=== PATIENT | female | born 1980 | race Caucasian/White ===

== ENCOUNTER 2020-11-03 06:22 | Emergency (ER) | payer MEDICAID, SELFPAY ==
[2020-11-03 06:24] VITALS: BP 135/82; PULSE 122; RESP 17; TEMP 36.8; O2SAT 98; BMI 34.5
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
[2020-11-03 07:11] LABS: Coronavirus 19, PCR Not Detected (NotDetected); Influenza A, PCR Not Detected (NotDetected); Influenza B, PCR Not Detected (NotDetected)
[2020-11-03 07:35] LABS: Microscopic, Urine URINE MICROSCOPIC (MICROSCOPIC)
[2020-11-03 07:57] LABS: Appearance,Urine CLEAR (Clear); Bilirubin,Urine Negative (Negative); Blood, Urine TRACE-I (Negative); Color,Urine YELLOW (Yellow); Glucose,Urine (UA) Negative (Negative); Ketones,Urine Negative (Negative); Leukocyte Esterase,Urine Negative (Negative); Nitrate,Urine Negative (Negative); Protein,Urine Negative (Negative); Specific Gravity, Urine <= 1.005 (1.005-1.030); Urobilinogen,Urine 0.2 EU/dl (0.2)
[2020-11-03 08:05] LABS: RBC,Urine Occasional #/hpf (0-3)
[2020-11-03 08:30] VITALS: BP 127/83; PULSE 79; RESP 18; TEMP 36.8; O2SAT 97
[2020-11-03 09:18] LABS: Barbiturates Screen,Urine Negative ng/ml (<200); Benzodiazepines Screen,Urine Negative ng/ml (<200)
[2020-11-03 09:19] LABS: Amphetamine/Metha Screen,Urine Positive ng/ml (<1000)
[2020-11-03 09:20] LABS: Cannabinoid Screen,Urine Negative ng/ml (<50); Cocaine Screen,Urine Negative ng/ml (<300)
[2020-11-03 09:21] LABS: Methadone Screen,Urine Negative ng/ml (<300)
[2020-11-03 09:22] LABS: Phencyclidine Screen,Urine Negative ng/ml (<25)
[2020-11-03 09:23] LABS: Opiate Screen,Urine Negative ng/ml (<300)
== END 2020-11-03 08:31 | disposition home or self-care (01) ==
PROVIDERS: Emergency Provider Emergency Medicine; PCP Nurse Practitioner Family
DX: J20.9 Acute bronchitis, unspecified (principal); S20.211A Contusion of right front wall of thorax, initial encounter; W50.0XXA Accidental hit or strike by another person, initial encounter; Y92.019 Unspecified place in single-family (private) house as the place of occurrence of the external cause; F17.210 Nicotine dependence, cigarettes, uncomplicated
CPT/HCPCS: 71101; 80305; 81001; 99283; C9803; U0003; U0005

== ENCOUNTER 2020-12-23 16:07 | Emergency (ER) | payer MEDICAID, SELFPAY ==
[2020-12-23 16:10] VITALS: BP 146/117; PULSE 103; RESP 20; RESP 22; TEMP 36.8; O2SAT 96; BMI 26.6
--- NOTE | 2020-12-23 16:46 | HMH.EDUTC ---
[facility] [place] Clinical Impression: Nausea & vomiting Qualifiers: Vomiting type: unspecified Vomiting Intractability: unspecified Qualified Code(s): R11.2 - Nausea with vomiting, unspecified Sinusitis Qualifiers: Sinusitis location: unspecified location Chronicity: unspecified Qualified Code(s): J32.9 - Chronic sinusitis, unspecified Disposition: Home, Self-Care Condition on Discharge: Good Instructions: Sinusitis, DI for Sinusitis, DI for Nausea -- Adult Additional Instructions: *Monitor Temp, Over the counter Motrin or Tylenol as directed/as needed Tylenol every 4 hours and Motrin every 6 hours (as long as your family doctor has told you that you can take it) for fever or pain. and straight to ER if unable to lower temp less than 101.0 after medication given *Warm salt water gargles may help to soothe the throat *Throat Lozenges *Warm fluids like tea with honey may help to soothe the throat *Sleep elevated *Humidifier/Vaporizer Your throat swab was sent for culture. Those results are typically sent to your primary care. Be sure to follow up in 2-3 days with your family doctor/primary care physician if no improvement so they can review those result and treat if necessary. If you don?t have a primary care doctor, I recommend you get one but in the mean time, you will have to return to a walk in clinic Follow up IMMEDIATELY for new or worsening symptoms or no Noticeable improvement over the next 48-72 hours. 911 for difficulty breathing or swallowing You were tested for today for COVID19 your test result should be back in the next 24-48 hours, you may for your results on the [facility] [employer] portal if you have issues logging on you may call for your results You was given a handout with instructions for Self Quarantine and Self isolation for while you wait on test results and what to do if they are positive If you are positive the Health Dept will be contacting you also Make sure to take your Vitamins Vit. C Vit D and Zinc if you can take them Prescriptions: Azithromycin [Z-Andrew 250mg Tab] 250 mg PO DIRECTED #6 tab Transmission Status: Pending to [facility] Ondansetron [Zofran 4mg ODT] 4 mg PO TIDP PRN #10 tab PRN Reason: Nausea Transmission Status: Pending to [facility] Referrals: Ingrid Joseph [Primary Care Provider] - As needed Forms: Work/School Release Time of Disposition: 17:58 Medical Decision Making - Stan Inquiry Pt receiving controlled substance: No Stan was queried for this patient: No Vital Signs: 12/23/20 16:10 Temperature 98.3 F Temperature Source Oral Pulse Rate [Right Brachial] 103 H Respiratory Rate 20 Blood Pressure [Right Arm] 146/117 H Blood Pressure Mean [Right Arm] 126 Blood Pressure Source [Right Arm] Automatic Cuff Blood Pressure Position [Right Arm] Sitting 02 Sat by Pulse Oximetry 96 Oxygen Delivery Method Room Air - Lab Data Lab results reviewed: Yes: I reviewed the patient's lab results. Lab Results 12/23/20 17:03: Strep Scn Rapid Clinic Negative Orders (Tests/Meds): ED MEDICATIONS Generic Name Dose Route Start Last Admin Trade Name Freq PRN Reason Stop Dose Admin Sodium Chloride 500 mls @ 500 mls/hr 12/23/20 17:18 12/23/20 17:19 Sod Chloride 0.9% 500ml Bag IV 12/23/20 18:17 500 mls/hr .Q1H SOBIA Administration Discontinued Medications Generic Name Dose Route Start Last Admin Trade Name Freq PRN Reason Stop Dose Admin Ketorolac Tromethamine 30 mg 12/23/20 16:49 12/23/20 17:18 Ketorolac 60mg/2ml Vial IV 12/23/20 16:50 30 mg ONCE ONE Administration Ondansetron HCl 4 mg 12/23/20 16:49 12/23/20 17:18 Ondansetron 4mg/2ml Vial IV 12/23/20 16:50 4 mg ONCE ONE Administration ORDERS Category Date Time Status Covid-19 Nasal PCR ([facility]) Routine Lab 12/23/20 17:00 Received Strep Screen Confirmation Stat Micro 12/23/20 17:03 Received Medical Decision Narrative: No vomiting since a
[2020-12-23 17:15] LABS: UTC Strep Screen (Rapid) Negative (Negative)
[2020-12-23 18:06] VITALS: BP 136/80; PULSE 103; RESP 20; TEMP 36.8; O2SAT 96
== END 2020-12-23 18:14 | disposition home or self-care (01) ==
PROVIDERS: Emergency Provider Nurse Practitioner; PCP Nurse Practitioner Family
DX: J32.9 Chronic sinusitis, unspecified (principal); U07.1 COVID-19; J45.909 Unspecified asthma, uncomplicated; I10 Essential (primary) hypertension; F17.210 Nicotine dependence, cigarettes, uncomplicated
CPT/HCPCS: 87880; 96365; 96375; 99202; C9803; G0463; J2405; U0003; U0005

== ENCOUNTER 2021-04-13 18:29 | Emergency (ER) | payer MEDICAID, SELFPAY ==
[2021-04-13 18:31] VITALS: BP 141/98; PULSE 87; RESP 19; TEMP 37.2; O2SAT 99; BMI 33.6
--- NOTE | 2021-04-13 19:09 | HMH.EDUTC ---
[facility] [place] Disposition Clinical Impression: Sinusitis Qualifiers: Sinusitis location: unspecified location Chronicity: unspecified Qualified Code(s): J32.9 - Chronic sinusitis, unspecified Disposition: Home, Self-Care Condition on Discharge: Good Instructions: Sinusitis, DI for Sinusitis, Azithromycin Additional Instructions: *Monitor Temp, Over the counter Motrin or Tylenol as directed/as needed Tylenol every 4 hours and Motrin every 6 hours (as long as your family doctor has told you that you can take it) for fever or pain. and straight to ER if unable to lower temp less than 101.0 after medication given *Warm salt water gargles may help to soothe the throat *Throat Lozenges *Warm fluids like tea with honey may help to soothe the throat *Sleep elevated *Humidifier/Vaporizer *Take medication as prescribed Follow up IMMEDIATELY for new or worsening symptoms or no Noticeable improvement over the next 48-72 hours. 911 for difficulty breathing or swallowing Prescriptions: Azithromycin [Z-Andrew 250mg Tab] 250 mg PO DIRECTED #6 tab Transmission Status: Received by [facility] Referrals: Ingrid Joseph [Primary Care Provider] - As needed Time of Disposition: 19:15 Medical Decision Making - Stan Inquiry Pt receiving controlled substance: No Stan was queried for this patient: No Vital Signs: 04/13/21 18:31 04/13/21 19:41 Temperature 98.9 F 98.9 F Temperature Source Oral Pulse Rate 87 Pulse Rate [Right Radial] 87 Respiratory Rate 19 19 Blood Pressure 141/98 H Blood Pressure [Right Arm] 141/98 H Blood Pressure Mean [Right Arm] 112 Blood Pressure Source [Right Arm] Automatic Cuff Blood Pressure Position [Right Arm] Sitting 02 Sat by Pulse Oximetry 99 Oxygen Delivery Method Room Air Orders (Tests/Meds): ED MEDICATIONS Discontinued Medications Generic Name Dose Route Start Last Admin Trade Name Freq PRN Reason Stop Dose Admin Ketorolac Tromethamine 30 mg 04/13/21 19:12 04/13/21 19:40 Ketorolac 60mg/2ml Vial IM 04/13/21 19:13 30 mg ONCE ONE Administration Medical Decision Narrative: Medication discussed with pharmacy due to [facility] HPI - General Stated complaint: cough,sob,stomach Time Seen by Provider: 04/13/21 19:09 Mode of Arrival: Ambulatory Source of Information: Patient Limitations: No Limitations Description of Symptoms (Recalled from Triage Doc. by RN): C/O ARCHER, sinus pressure and congestion x3 days HEENT Symptoms (Recalled from RN notes): Yes (ARCHER, sinus pressure) Resp Symptoms (Recalled from RN notes): No Skin Symptoms (Recalled from RN notes): No MS Symptoms (Recalled from RN notes): No Functional Status (Recalled from RN notes): n/a - History of Present Illness Provider Complaint: Patient states that she has been having headache, sinus pain and pressure and scratchy throat for the last 3 days States that she came in to see if she could get a shot to help with headache and get something for her sinuses - Related Data Home Medications Medication Instructions Recorded Confirmed lisinopriL [Lisinopril] 5 mg PO DAILY 12/23/20 12/23/20 Previous Rx's Medication Instructions Recorded Azithromycin [Z-Andrew 250mg Tab] 250 mg PO DIRECTED #6 tab 12/23/20 Ondansetron [Zofran 4mg ODT] 4 mg PO TIDP PRN #10 tab 12/23/20 Azithromycin [Z-Andrew 250mg Tab] 250 mg PO DIRECTED #6 tab 04/13/21 Allergies Allergy/AdvReac Type Severity Reaction Status Date / Time amoxicillin [AMOXICILLIN] Allergy Unknown Verified 10/09/18 18:08 codeine [CODEINE] Allergy Unknown NA-NAUSEA/V Verified 10/09/18 18:08 OMITING Penicillins Allergy Verified 12/23/20 16:45 - Worker's Comp Is this a Worker's Comp case?: No [facility] History - Hepatitis A Screen Drug use history?: No High risk sexual behaviors?: No History of sexually transmitted infection?: No Currently employed?: No Childcare worker?: No Do you have indoor plumbing?: Yes Do
[2021-04-13 19:41] VITALS: BP 141/98; PULSE 87; RESP 19; TEMP 37.2; O2SAT 99
== END 2021-04-13 19:45 | disposition home or self-care (01) ==
PROVIDERS: Emergency Provider Nurse Practitioner; PCP Nurse Practitioner Family
DX: J32.9 Chronic sinusitis, unspecified (principal); I10 Essential (primary) hypertension; F17.210 Nicotine dependence, cigarettes, uncomplicated
CPT/HCPCS: 96372; 99202; G0463

== ENCOUNTER 2022-09-16 10:45 | Observation (INO) | payer MEDICAID, SELFPAY ==
[2022-09-16] VITALS (16 sets, daily range): BP systolic 91–182; BP diastolic 52–141; PULSE 72–140; RESP 18–22; TEMP 36.4–37.1; O2SAT 96–100; BMI 35.4; BMI 34.9
--- NOTE | 2022-09-16 10:54 | PC.NURSE ---
went in with Dr. Heller to perform occult.
--- NOTE | 2022-09-16 10:56 | CT_ITS ---
PROCEDURE INFORMATION: Exam: CT Abdomen And Pelvis With Contrast Exam date and time: 09/16/2022 11:35 AM Age: 41 years old Clinical indication: Abdominal pain; Epigastric; Additional info: Epigastric pain tearing hematemesis poss perf TECHNIQUE: Imaging protocol: Computed tomography of the abdomen and pelvis with contrast. Radiation optimization: All CT scans at this facility use at least one of these dose optimization techniques: automated exposure control; mA and/or kV adjustment per patient size (includes targeted exams where dose is matched to clinical indication); or iterative reconstruction. Contrast material: ISOVUE; Contrast volume: 75 ml; Contrast route: IV; REPORTING DATA: Count of CT and Cardiac NM exams in prior 12 months: This patient has received 0 known CTs and 0 known cardiac nuclear medicine studies in the 12 months prior to the current study. COMPARISON: CR XR RIBS RT MIN 3V W CXR1V 11/03/2020 7:21 AM FINDINGS: Liver: Hepatic steatosis Gallbladder and bile ducts: Normal. No calcified stones. No ductal dilation. Pancreas: Normal. No ductal dilation. Spleen: Normal. No splenomegaly. Adrenal glands: Normal. No mass. Kidneys and ureters: Normal. No hydronephrosis. Stomach and bowel: Colonic diverticulosis. No evidence of diverticulitis. Appendix: No evidence of appendicitis. Intraperitoneal space: Unremarkable. No free air. No significant fluid collection. Vasculature: Scattered regions of atherosclerotic vascular calcification within the abdominal aorta and common iliac arteries. Lymph nodes: Unremarkable. No enlarged lymph nodes. Urinary bladder: Unremarkable as visualized. Reproductive: Unremarkable as visualized. Bones/joints: Unremarkable. No acute fracture. Soft tissues: Unremarkable. IMPRESSION: No evidence of acute abnormality.
--- NOTE | 2022-09-16 10:56 | CT_ITS ---
PROCEDURE INFORMATION: Exam: CT Chest With Contrast; Diagnostic Exam date and time: 09/16/2022 11:35 AM Age: 41 years old Clinical indication: Sternal or substernal pain; Additional info: Epigastric pain tearing hematemesis poss perf TECHNIQUE: Imaging protocol: Diagnostic computed tomography of the chest with contrast. Radiation optimization: All CT scans at this facility use at least one of these dose optimization techniques: automated exposure control; mA and/or kV adjustment per patient size (includes targeted exams where dose is matched to clinical indication); or iterative reconstruction. Contrast material: ISOVUE; Contrast volume: 75 ml; Contrast route: IV; REPORTING DATA: Count of CT and Cardiac NM exams in prior 12 months: This patient has received 0 known CTs and 0 known cardiac nuclear medicine studies in the 12 months prior to the current study. COMPARISON: CR XR RIBS RT MIN 3V W CXR1V 11/03/2020 7:21 AM FINDINGS: Lungs: Unremarkable. No consolidation. No masses. Pleural spaces: Unremarkable. No pneumothorax. No pleural effusion. Heart: Unremarkable. No cardiomegaly. No pericardial effusion. Coronary arteries: No evidence of coronary artery calcification. Lymph nodes: Unremarkable. No enlarged lymph nodes. Vasculature: Unremarkable. No aortic aneurysm. Bones/joints: Unremarkable. No acute fracture. Soft tissues: Unremarkable. IMPRESSION: No evidence of acute intrathoracic abnormality.
--- NOTE | 2022-09-16 10:56 | HMH.EDGENADL ---
Discharge Plan Disposition Chief Complaint: Abdominal Pain Prescriptions Prescriptions: No Action azithromycin 250 MG tablet 250 mg PO DIRECTED Qty: 6 0RF Rx Instructions: Take two (2) tablets on day #1, then one (1) tablet day #2 thru #5 lisinopril 5 MG tablet 5 mg PO DAILY azithromycin 250 MG tablet 250 mg PO DIRECTED Qty: 6 0RF Rx Instructions: Take two (2) tablets on day #1, then one (1) tablet day #2 thru #5 ondansetron 4 MG tablet,disintegrating 4 mg PO TIDP PRN (Reason: Nausea) Qty: 10 0RF Clinical Impressions Clinical Impression: Acute upper GI bleed Instructions Patient Instructions: DI for Acute Abdominal Pain Discharge ED Provider: Missy Heller General Adult HPI General Chief complaint: Abdominal Pain Stated complaint: abd pain Time Seen by Provider: 09/16/22 10:47 History of Present Illness HPI narrative: 41-year-old female with a history of chronic musculoskeletal pain who takes daily naproxen for 6 months presenting today with nausea vomiting coffee-ground emesis yesterday and sudden worsening of her pain today with faiza hematemesis. She also states she had melena for the last 24 hours. Pain is located epigastric in nature and feels like it is tearing in nature. Additionally she has a history of hepatitis C but no history of any cirrhosis or liver fibrosis. No history of esophageal varices. Related Data Home Medications Medication Instructions Recorded Confirmed lisinopril 5 mg tablet 5 mg PO DAILY Hypertension 12/23/20 12/23/20 Previous Rx's Medication Instructions Recorded azithromycin 250 mg tablet 250 mg PO DIRECTED #6 tabs 12/23/20 ondansetron 4 mg disintegrating 4 mg PO TIDP PRN Nausea #10 tabs 12/23/20 tablet azithromycin 250 mg tablet 250 mg PO DIRECTED #6 tabs 04/13/21 Allergies Allergy/AdvReac Type Severity Reaction Status Date / Time amoxicillin [AMOXICILLIN] Allergy Unknown Verified 10/09/18 18:08 codeine [CODEINE] Allergy Unknown NA-NAUSEA/V Verified 10/09/18 18:08 OMITING Penicillins Allergy Verified 12/23/20 16:45 [facility] Disclaimer: The information contained in this section may have been updated after the patient was seen, as this information can be updated by other users. Medical History (Updated 09/16/22 @ 10:58 by Missy Heller MD) Diarrhea Fever Nausea & vomiting Social History Smoking Status: Current every day smoker tobacco type: cigarettes packs per day: 1 alcohol intake: never substance use type: denies use current occupational status: employed Travel in the last 8 weeks: None household members: family housing: house ROS Obtained: Yes All systems reviewed & no additional complaints except as documented Physical Exam General General appearance: other (Patient screaming in pain) Respiratory Respiratory exam: Present normal lung sounds bilaterally Cardiovascular Cardiovascular exam: Present regular rate; Absent tachycardia Abdominal Exam Abdominal exam: Present other (Epigastric tenderness to palpation there is no rebound or guarding throughout the rest of her abdomen) Neurological Exam Neurological exam: Present alert and oriented X3 Medical Decision Making Stan Inquiry Pt receiving controlled substance: No Vital Signs: 09/16/22 10:45 09/16/22 11:03 09/16/22 11:47 Temperature 98.4 F Temperature Source Oral Pulse Rate 140 H 120 H Pulse Rate [Right] 122 H Respiratory Rate 22 18 Blood Pressure 99/73 L 104/70 L Blood Pressure [Right Arm] 182/141 H Blood Pressure Mean 78 81 Blood Pressure Mean [Right Arm] 154 Blood Pressure Source [Right Arm] Automatic Cuff Blood Pressure Position [Right Arm] Sitting 02 Sat by Pulse Oximetry 98 96 99 Oxygen Delivery Method Room Air Room Air 09/16/22 12:01 Temperature Temperature Source Pulse Rate 120 H Pulse Rate [Right] Respiratory Rate 18 Blood Pressure 120/83 Blood Pressure
[2022-09-16 11:03] LABS: Occult Blood,Stool Negative (Negative)
[2022-09-16 11:07] LABS: Basophils # 0.1 K/mm3 (0-0.2); Basophils % 0.6 % (0.1-2.0); Eosinophils # 0.1 K/mm3 (0.0-0.4); Eosinophils % 0.8 % (0.1-12.0); Hematocrit 48.5 % (37.0-47.0); Hemoglobin 15.8 g/dL (12.2-16.2); Lymphocytes # 2.7 K/mm3 (0.7-4.5); Lymphocytes % 21.4 % (10-50); Mean Corpuscular HGB Conc 32.7 g/dL (31.8-35.4); Mean Corpuscular Hemoglobin 28.7 pg (27.0-31.2); Mean Corpuscular Volume 87.9 fl (81-99); Mean Platelet Volume 8.4 fl (7.4-10.4); Monocytes # 0.7 K/mm3 (0.1-1.0); Monocytes % 5.7 % (1.7-9.3); Neutrophils % 71.5 % (37.0-80.0); Platelet Count 370 K/mm3 (142-424); Red Blood Count 5.52 M/mm3 (4.20-5.40); White Blood Count 12.6 K/mm3 (4.8-10.8)
--- NOTE | 2022-09-16 11:15 | PC.NURSE ---
lab called stating unable to run occult d/t not enough specimen on card.
[2022-09-16 11:18] LABS: Chloride 106 mmol/L (98-107); Potassium 3.9 mmoL/L (3.5-5.1); Sodium 139 mmol/L (136-145)
--- NOTE | 2022-09-16 11:19 | PC.NURSE ---
pt refused lab to draw type and screen
[2022-09-16 11:20] LABS: Alanine Aminotransferase 32 U/L (12-78); Aspartate Amino Transferase 38 U/L (14-36); Blood Urea Nitrogen 26 mg/dl (7-17); Creatinine Clearance Estimated 71 mL/min (50-200); Estimated Glomerular Filt Rate 38 ml/min (>60); GFR (African American) 46 ML/MIN (>60)
[2022-09-16 11:21] LABS: Albumin Level 4.8 g/dl (3.5-5.0); Albumin/Globulin Ratio 1.2 (1.1-1.8); Alkaline Phosphatase 139 U/L (38-126); Anion Gap 15.9 mEq/L (5-15); Calcium 10.3 mg/dl (8.4-10.2); Carbon Dioxide 21 mmol/L (22.0-30.0); Globulin 3.9 g/dL (1.3-3.2); Glucose 167 mg/dl (74-100); Lipase 91 U/L (23-300); Total Protein,Serum 8.7 g/dl (6.3-8.2)
[2022-09-16 11:24] LABS: Activated Partial Thrombo Time 29.3 seconds (22.8-30.6); INR 0.99 (0.9-1.1); Prothrombin Time 10.7 seconds (10.1-12.5)
--- NOTE | 2022-09-16 11:24 | PC.NURSE ---
attempted to contact to let him know that she is here, given cold wash cloth for comfort
--- NOTE | 2022-09-16 11:33 | PC.NURSE ---
Patient to CT
--- NOTE | 2022-09-16 11:45 | PC.NURSE ---
Rounded on patient; call light within reach. Nothing needed at this time.
--- NOTE | 2022-09-16 11:54 | PC.NURSE ---
Dr Willis paged
--- NOTE | 2022-09-16 11:55 | PC.NURSE ---
Dr Heller speaking with Dr Willis
--- NOTE | 2022-09-16 12:00 | PC.NURSE ---
Dr Heller speaking with Dr Bhandari
--- NOTE | 2022-09-16 12:00 | PC.NURSE ---
rounded on patient, patient on phone at this time, no needs at this time
--- NOTE | 2022-09-16 12:06 | PC.NURSE ---
Tanesha Spoke with postal supervisor for bed assignment
--- NOTE | 2022-09-16 12:23 | HMH.PHAINT1 ---
Pharmacy Intervention Comments: MEDICATION RECONCILIATION COMPLETED ON PATIENT USING EXTERNAL FILL HISTORY FROM PHARMACY. -CHERELLE PRITCHETT, RONALDOD
--- NOTE | 2022-09-16 12:26 | PC.NURSE ---
Rounded on patient; nothing needed at this time. Call richard within reach of patient
--- NOTE | 2022-09-16 12:27 | EXP.HP ---
History of Present Illness *Admission Date: 09/16/22 *Reason for visit:: Abdominal pain, hematemesis *History of present illness: Ms. Moeller is a 41-year-old female with history of hepatitis C and hypertension who presented to the ER with complaint of 1 to 2 days of hematemesis and 2 to 3 days of melenic stools. She states that she has been taking Aleve for the past 6 months for pain in her foot. Over the past week or so she has developed worsening abdominal discomfort and began having hematemesis and coffee-ground emesis over the past 1 to 2 days that was preceded by black stools. States she has been having discomfort in her upper abdomen. Denies any fever, chest pain, cough, shortness of breath. In the ER was found to be tachycardic with complaint of abdominal pain. Work-up initiated including imaging of abdomen, labs, stool occult. Occult was negative, hemoglobin 15. Imaging of her abdomen was benign with no acute abnormalities. Given clinical history however, surgery was consulted for possible EGD and medicine was consulted for admission for further management. Patient treated with 80 mg Protonix IV and made NPO. After arriving to the floor, patient states she is continue to have abdominal discomfort. Denies any further stools since admission or further emesis since admission. Just started antiviral treatment for hepatitis C a week ago. Had takes Prozac for mood and lisinopril for blood pressure. Currently sees GI in [place] for hepatitis C treatment. [facility] Disclaimer: The information contained in this section may have been updated after the patient was seen, as this information can be updated by other users. Medical History Diarrhea Fever Hypertension Nausea & vomiting Surgical History History of section Family History Family history of cancer Social History Smoking Status: Current every day smoker tobacco type: cigarettes packs per day: 1 alcohol intake: never substance use type: denies use current occupational status: employed Travel in the last 8 weeks: None household members: family housing: house Meds Home Medications and Allergies Home Medications Medication Instructions Recorded Confirmed Type fluoxetine 10 mg capsule 10 mg PO DAILY MOOD 09/16/22 09/16/22 History lisinopril 20 mg tablet 20 mg PO DAILY High Blood Pressure 09/16/22 09/16/22 History naproxen 500 mg tablet 500 mg PO BID Pain 09/16/22 09/16/22 History sofosbuvir 400 mg-velpatasvir 100 1 tab PO DAILY Hepatitis C 09/16/22 09/16/22 History mg tablet New Prescriptions to Start Prescriptions: Allergies Allergy/AdvReac Type Severity Reaction Status Date / Time amoxicillin [AMOXICILLIN] Allergy Unknown Verified 09/16/22 13:02 codeine [CODEINE] Allergy Unknown NA-NAUSEA/V Verified 09/16/22 13:02 OMITING Penicillins Allergy Verified 09/16/22 13:02 Exam Data for Last 24 hours Vital signs and Labs for Last 24 Hours: Temp Pulse Resp BP Pulse Ox O2 Del Method 98.4 F 120 H 18 120/83 98 Room Air 09/16/22 10:45 09/16/22 12:01 09/16/22 12:01 09/16/22 12:01 09/16/22 12:01 09/16/22 12:01 Laboratory Results - last 24 hr 09/16/22 10:47: WBC 12.6 H, RBC 5.52 H, Hgb 15.8, Hct 48.5 H, MCV 87.9, MCH 28.7, MCHC 32.7, RDW 13.0, Plt Count 370, MPV 8.4, Neut % (Auto) 71.5, Lymph % (Auto) 21.4, [place] % (Auto) 5.7, Eos % (Auto) 0.8, Baso % (Auto) 0.6, Neut # (Auto) 9.0 H, Lymph # (Auto) 2.7, [place] # (Auto) 0.7, Eos # (Auto) 0.1, Baso # (Auto) 0.1, PT 10.7, INR 0.99, APTT 29.3, Sodium 139, Potassium 3.9, Chloride 106, Carbon Dioxide 21 L, Anion Gap 15.9 H, BUN 26 H, Creatinine 1.50 H, Estimated Creat Clear 71, Estimated GFR 38 L, Est GFR ( Amer) 46 L, Glucose 167 H, Calcium 10.3 H, Total Bilirub
--- NOTE | 2022-09-16 13:49 | EXP.SURG.CON ---
History of Present Illness *Admission Date: 09/16/22 *Reason for visit:: GI bleed *History of present illness: Patient is a 41-year-old female from [place] with history of hepatitis C without cirrhosis or varices for which she is undergoing treatment by a brainer from [facility]. She has chronic musculoskeletal pain and has been taking Naprosyn daily for 6 months. She describes symptoms of epigastric and substernal pain with dysphagia for about 1 year. She has had some reported symptoms consistent with melena. She has had nausea for about a week and reportedly developed coffee-ground emesis yesterday. Today she had worsening of epigastric pain with symptoms described consistent with faiza hematemesis. She was evaluated in the emergency department. She was found to have some appreciable tachycardia on presentation. She underwent imaging to rule out Boerhaave's or perforation. Imaging revealed no evidence of any portal hypertension or varices and no perforation. Laboratory studies revealed hemoglobin of 15.8 with hematocrit of 48.5. She has a BUN of 26 and creatinine of 1.5. Coagulation profile is normal. The patient ate crackers with cheese and fruit prior to presentation to the emergency department and drank some tea after reporting to the emergency department. [facility] Disclaimer: The information contained in this section may have been updated after the patient was seen, as this information can be updated by other users. Medical History (Updated 09/16/22 @ 13:12 by Corrina Headley RN) Diarrhea Fever Hypertension Nausea & vomiting Surgical History History of section Family History (Updated 09/16/22 @ 13:13 by Corrina Headley RN) Family history of cancer Social History (Updated 09/16/22 @ 13:13 by Corrina Headley RN) Smoking Status: Current every day smoker tobacco type: cigarettes packs per day: 1 alcohol intake: never substance use type: denies use current occupational status: employed Travel in the last 8 weeks: None household members: family housing: house Meds Home Medications and Allergies Home Medications Medication Instructions Recorded Confirmed Type fluoxetine 10 mg capsule 10 mg PO DAILY MOOD 09/16/22 09/16/22 History lisinopril 20 mg tablet 20 mg PO DAILY High Blood Pressure 09/16/22 09/16/22 History naproxen 500 mg tablet 500 mg PO BID Pain 09/16/22 09/16/22 History sofosbuvir 400 mg-velpatasvir 100 1 tab PO DAILY Hepatitis C 09/16/22 09/16/22 History mg tablet New Prescriptions to Start Prescriptions: Allergies Allergy/AdvReac Type Severity Reaction Status Date / Time amoxicillin [AMOXICILLIN] Allergy Unknown Verified 09/16/22 13:02 codeine [CODEINE] Allergy Unknown NA-NAUSEA/V Verified 09/16/22 13:02 OMITING Penicillins Allergy Verified 09/16/22 13:02 Exam (Inpt) Vital signs and Labs for Last 24 Hours: Temp Pulse Resp BP Pulse Ox O2 Del Method 98.4 F 113 H 18 110/82 98 Room Air 09/16/22 13:01 09/16/22 13:01 09/16/22 13:01 09/16/22 13:01 09/16/22 13:01 09/16/22 13:01 Laboratory Results - last 24 hr 09/16/22 10:47: WBC 12.6 H, RBC 5.52 H, Hgb 15.8, Hct 48.5 H, MCV 87.9, MCH 28.7, MCHC 32.7, RDW 13.0, Plt Count 370, MPV 8.4, Neut % (Auto) 71.5, Lymph % (Auto) 21.4, [place] % (Auto) 5.7, Eos % (Auto) 0.8, Baso % (Auto) 0.6, Neut # (Auto) 9.0 H, Lymph # (Auto) 2.7, [place] # (Auto) 0.7, Eos # (Auto) 0.1, Baso # (Auto) 0.1, PT 10.7, INR 0.99, APTT 29.3, Sodium 139, Potassium 3.9, Chloride 106, Carbon Dioxide 21 L, Anion Gap 15.9 H, BUN 26 H, Creatinine 1.50 H, Estimated Creat Clear 71, Estimated GFR 38 L, Est GFR ( Amer) 46 L, Glucose 167 H, Calcium 10.3 H, Total Bilirubin 1.0, AST 38 H, ALT 32, Alkaline Phosphatase 139 H, Total Protein 8.7 H, Albumin 4.8, Globulin 3.9 H, Albumin/Globulin Ratio 1.2, Lipase 91 09/16/22 10:52: Stool Occult Blood Negative
[2022-09-16 14:45] LABS: HCG Qualitative, Serum Negative (Negative)
--- NOTE | 2022-09-16 15:14 | HMH.SCOPE ---
Procedure: Date: 09/16/22 Patient Date of :: 1980 Procedure Performed:: Esophagogastroduodenoscopy Indications:: Patient is a 41-year-old female from [place] with history of hepatitis C without cirrhosis or varices for which she is undergoing treatment by a assembly supervisor from [facility]. She has chronic musculoskeletal pain and has been taking Naprosyn daily for 6 months. She describes symptoms of epigastric and substernal pain with dysphagia for about 1 year. She has had some reported symptoms consistent with melena. She has had nausea for about a week and reportedly developed coffee-ground emesis yesterday. Today she had worsening of epigastric pain with symptoms described consistent with faiza hematemesis. She was evaluated in the emergency department. She was found to have some appreciable tachycardia on presentation. She underwent imaging to rule out Boerhaave's or perforation. Imaging revealed no evidence of any portal hypertension or varices and no perforation. Laboratory studies revealed hemoglobin of 15.8 with hematocrit of 48.5. She has a BUN of 26 and creatinine of 1.5. Coagulation profile is normal. The patient ate crackers with cheese and fruit prior to presentation to the emergency department and drank some tea after reporting to the emergency department. Performing Provider:: Truman Willis MD Referring Provider:: Tommy Bhandari MD Sedation:: MAC sedation Procedure:: Patient history was obtained and appropriate physical examination was performed. Patient's medications and allergies were reviewed. Informed consent was obtained after explaining the benefits, alternatives, and risks of the procedure including, but not limited to, bleeding, perforation, missed lesions, and adverse reaction to anesthesia medications. Patient was transported to endoscopy procedure room. Patient was connected to monitoring devices. Throughout the procedure the patient's blood pressure, pulse, and oxygen saturations were monitored continuously. Patient identification and planned procedure were verified by the staff. Patient was positioned in lateral decubitus position. Adequate intravenous sedation was achieved. Olympus endoscope was inserted via the oropharynx. Esophagus was cannulated. Overall esophagus revealed findings consistent with mild esophageal dysmotility. Gastroesophageal junction was encountered at approximately 38 cm. There were findings of mild Schatzki's ring. There were a couple of erosions, shallow, nonbleeding, at the gastroesophageal junction. No evidence of any varices. Stomach was cannulated and insufflated. Retroflexion revealed no evidence of any notable hiatal hernia. There was mild diffuse gastropathy. Pylorus was traversed. Duodenal bulb and duodenal sweep were carefully inspected without any evidence of ulcers. There was no evidence of any old blood throughout the upper GI tract. Stomach was desufflated and the endoscope was withdrawn. Findings:: Findings suggestive of mild to moderate esophageal dysmotility Gastroesophageal junction at 38 cm A couple of shallow nonbleeding erosions at the gastroesophageal junction Mild diffuse gastropathy Recommendations:: No active upper GI bleeding. Symptoms of dysphagia and occasional coffee-ground hematemesis likely secondary to currently nonbleeding erosions at the gastroesophageal junction. Would plan for expectant management with medical therapy. Repeat upper endoscopy may be warranted after some time of outpatient medical therapy. This could be undertaken by her regular assembly supervisor. Complications:: None immediate Estimated blood obtained (mL): 0 Colonoscopy Component Colonoscopy Component Was a colonoscopy performed during today's procedure?: No
--- NOTE | 2022-09-16 15:19 | EXP.ANES.CKL ---
[facility] Disclaimer: The information contained in this section may have been updated after the patient was seen, as this information can be updated by other users. Medical History (Updated 09/16/22 @ 13:12 by Corrina Headley RN) Diarrhea Fever Hypertension Nausea & vomiting Surgical History History of section Family History (Updated 09/16/22 @ 13:13 by Corrina Headley RN) Other Family history of cancer Social History (Updated 09/16/22 @ 13:13 by Corrina Headley RN) Smoking Status: Current every day smoker tobacco type: cigarettes packs per day: 1 alcohol intake: never substance use type: denies use current occupational status: employed Travel in the last 8 weeks: None household members: family housing: house [facility] Anesthesia Checklist Patient Identification Patient Identification: Arm Band Structural Data Admitted From: Home Planned Operative Procedure/s: EGD Consent for Planned Operative Procedure(s) Verified: Yes Verified Documents: Surgical Consent and History and Physical NPO Status Verified Time NPO: 09:45 Additional verifications Patient : No Anesthesia Reactions: No Airway Assessment C-Spine Mobility Assessed: Yes TMJ Mobility Assessed: Yes Dentition: Good Dentition Neurological Assessment Level of Consciousness: Awake and Alert Anesthesia Plan Anesthesia Risk discussed: Yes Anesthesia Plan: Verified ASA Class: II (E) Anesthesia Type: MAC
--- NOTE | 2022-09-16 20:07 | PC.NURSE ---
pt left floor at this time
--- NOTE | 2022-09-16 20:10 | PC.NURSE ---
IV REMOVED, CANNULA INTACT, PRESSURE DRSG APPLIED. INSTRUCTED TO FOLLOW UP WITH PRIMARY DOCTOR. PATIENT ASSISTED TO FRONT DOOR OF LOBBY AT 2004.
--- NOTE | 2022-09-17 07:42 | EXP.DC.SUM ---
General Admission date:: 09/16/22 Discharge date: 09/16/22 HPI HPI HPI: Ms. Moeller is a 41-year-old female with history of hepatitis C and hypertension who presented to the ER with complaint of 1 to 2 days of hematemesis and 2 to 3 days of melenic stools. She states that she has been taking Aleve for the past 6 months for pain in her foot. Over the past week or so she has developed worsening abdominal discomfort and began having hematemesis and coffee-ground emesis over the past 1 to 2 days that was preceded by black stools. States she has been having discomfort in her upper abdomen. Denies any fever, chest pain, cough, shortness of breath. In the ER was found to be tachycardic with complaint of abdominal pain. Work-up initiated including imaging of abdomen, labs, stool occult. Occult was negative, hemoglobin 15. Imaging of her abdomen was benign with no acute abnormalities. Given clinical history however, surgery was consulted for possible EGD and medicine was consulted for admission for further management. Patient treated with 80 mg Protonix IV and made NPO. After arriving to the floor, patient states she is continue to have abdominal discomfort. Denies any further stools since admission or further emesis since admission. Just started antiviral treatment for hepatitis C a week ago. Had takes Prozac for mood and lisinopril for blood pressure. Currently sees GI in [place] for hepatitis C treatment. Hospital Course Hospital Course Hospital Course: Patient was admitted for concern for GI bleed. Hemoglobin was appropriate, no anemia. Taken for EGD, found to have irritation/erosion at GE junction. No overt ulcers or bleeding however. Initiated on PPI therapy. Plan was to monitor hemoglobin overnight and gradually advance diet. Patient however did not want to stay and chose to leave AMA. Counseled on need to continue with management and observation, however patient preferred to leave without further care. Exam Data for Last 24 hours Vital signs and Labs for Last 24 Hours: Temp Pulse Resp BP Pulse Ox O2 Del Method O2 Flow Rate 98.6 F 91 H 18 124/68 98 Room Air 4 09/16/22 18:30 09/16/22 18:30 09/16/22 18:30 09/16/22 18:30 09/16/22 18:30 09/16/22 18:30 09/16/22 15:20 Laboratory Results - last 24 hr 09/16/22 10:47: WBC 12.6 H, RBC 5.52 H, Hgb 15.8, Hct 48.5 H, MCV 87.9, MCH 28.7, MCHC 32.7, RDW 13.0, Plt Count 370, MPV 8.4, Neut % (Auto) 71.5, Lymph % (Auto) 21.4, [place] % (Auto) 5.7, Eos % (Auto) 0.8, Baso % (Auto) 0.6, Neut # (Auto) 9.0 H, Lymph # (Auto) 2.7, [place] # (Auto) 0.7, Eos # (Auto) 0.1, Baso # (Auto) 0.1, PT 10.7, INR 0.99, APTT 29.3, Sodium 139, Potassium 3.9, Chloride 106, Carbon Dioxide 21 L, Anion Gap 15.9 H, BUN 26 H, Creatinine 1.50 H, Estimated Creat Clear 71, Estimated GFR 38 L, Est GFR ( Amer) 46 L, Glucose 167 H, Calcium 10.3 H, Total Bilirubin 1.0, AST 38 H, ALT 32, Alkaline Phosphatase 139 H, Total Protein 8.7 H, Albumin 4.8, Globulin 3.9 H, Albumin/Globulin Ratio 1.2, Lipase 91, Serum HCG, Qual Negative 09/16/22 10:52: Stool Occult Blood Negative I & O for Last 24 hours: Intake & Output 09/14/22 09/15/22 09/16/22 09/17/22 23:59 23:59 23:59 23:59 Intake Total 620 / 620 Output Total 0 / 0 Balance 620 / 620 Weight 89.358 kg Constitutional Constitutional: no acute distress Results Data Completed and Pending Labs on day of discharge: Labs from last 24 hours 09/16/22 09/16/22 10:52 10:47 WBC 12.6 H RBC 5.52 H Hgb 15.8 Hct 48.5 H MCV 87.9 MCH 28.7 MCHC 32.7 RDW 13.0 Plt Count 370 MPV 8.4 Neut % (Auto) 71.5 Lymph % (Auto) 21.4 [place] % (Auto) 5.7 Eos % (Auto) 0.8 Baso % (Auto) 0.6 Neut # (Auto) 9.0 H Lymph # (Auto) 2.7 [place] # (Auto) 0.7 Eos # (Auto) 0.1 Baso # (Auto) 0.1 PT 10.7 INR 0.99 APTT 29.3 Sodium 139 Potassium 3.9 Chloride 106 Carbon Dioxide 21 L Anion Gap 15.9 H BUN 26 H
== END 2022-09-16 20:05 | disposition left against medical advice (07) ==
LOC: ER 12:06 → 2ND 13:21
PROVIDERS: Surgery; Admitting Provider Internal Medicine Adolescent Medicine; Emergency Provider Student in an Organized Health Care Education/Training Program; Visit Provider Internal Medicine Adolescent Medicine
PROC: 0DJ08ZZ Inspection of Upper Intestinal Tract, Via Natural or Artificial Opening Endoscopic (ICD-10-PCS; CPT 43235; principal; 2022-09-16 15:00)
DX: K92.2 Gastrointestinal hemorrhage, unspecified (principal); R13.19 Other dysphagia; B19.20 Unspecified viral hepatitis C without hepatic coma; K22.2 Esophageal obstruction; R10.13 Epigastric pain; R07.2 Precordial pain; I10 Essential (primary) hypertension; N17.9 Acute kidney failure, unspecified; Z79.899 Other long term (current) drug therapy
CPT/HCPCS: 43235; 71260; 74177; 80053; 82272; 83690; 84703; 85025; 85610; 85730; 99291; G0328; G0378; J0131; J2405; Q9967

== ENCOUNTER 2022-10-07 14:30 | Emergency (ER) | payer MEDICAID, SELFPAY ==
--- NOTE | 2022-10-07 14:38 | PC.NURSE ---
pt was placed in room by registration who came out to let us know pt bed was moving and did not lock the bed, i went and secured bed for pt
[2022-10-07 14:45] VITALS: BP 170/121; PULSE 99; O2SAT 96
[2022-10-07 14:51] VITALS: BP 170/101; PULSE 107; RESP 20; TEMP 36.8; O2SAT 98; BMI 30.9
[2022-10-07 15:01] VITALS: BP 146/89; PULSE 91; O2SAT 98
--- NOTE | 2022-10-07 15:09 | CT_ITS ---
PROCEDURE INFORMATION: Exam: CT Chest With Contrast; Diagnostic Exam date and time: 10/07/2022 4:15 PM Age: 41 years old Clinical indication: Other: Blood and esphogus erosion; Additional info: Ugib, hematemesis, ge jx erosions TECHNIQUE: Imaging protocol: Diagnostic computed tomography of the chest with contrast. Radiation optimization: All CT scans at this facility use at least one of these dose optimization techniques: automated exposure control; mA and/or kV adjustment per patient size (includes targeted exams where dose is matched to clinical indication); or iterative reconstruction. Contrast material: ISOVUE; Contrast volume: 75 ml; Contrast route: IV; REPORTING DATA: Count of CT and Cardiac NM exams in prior 12 months: This patient has received 2 known CTs and 0 known cardiac nuclear medicine studies in the 12 months prior to the current study. COMPARISON: CT CHEST W CON 09/16/2022 11:35 AM FINDINGS: Lungs: No evidence of airspace opacity or interlobular septal thickening. Pleural spaces: No pneumothorax. No pleural effusion. Heart: No cardiomegaly or pericardial effusion. Coronary arteries: There is mild atherosclerotic calcification of the coronary arteries. Mediastinal space: Esophagus is unremarkable. No evidence of hiatal hernia. Lymph nodes: No evidence of mediastinal or hilar lymphadenopathy. Vasculature: Aorta is nonaneurysmal. Bones/joints: No acute osseous abnormality. Soft tissues: Unremarkable. IMPRESSION: 1. Esophagus is unremarkable. No evidence of hiatal hernia. 2. No evidence of pneumonia or interstitial lung disease
--- NOTE | 2022-10-07 15:27 | HMH.EDGENADL ---
Discharge Plan Disposition Patient Disposition: Home, Self-Care Condition: Good Prescriptions Prescriptions: New omeprazole 20 mg capsule,delayed release(DR/EC) 20 mg PO DAILY 28 Days Qty: 28 0RF sucralfate [Carafate] 100 mg/mL suspension 1 g PO BID 28 Days Qty: 560 0RF No Action lisinopril 20 mg tablet 20 mg PO DAILY fluoxetine 10 mg capsule 10 mg PO DAILY sofosbuvir-velpatasvir 400-100 mg tablet 1 tab PO DAILY naproxen 500 mg tablet 500 mg PO BID Referrals Follow up/Referrals: Truman Willis MD [Staff Physician] - See instructions Provider,MD Jd [Primary Care Provider] - See instructions Activity Restrictions/Add. Instructions Additional Instructions/Restrictions: At this time is felt you are safe to be discharged home. If new or worsening symptoms please do not hesitate to return the emergency department. Please take your medications as prescribed. Please call and schedule follow-up with Dr. Willis early next week Clinical Impressions Clinical Impression: UGIB (upper gastrointestinal bleed) Discharge ED Provider: Jarod Pagan General Adult HPI General Chief complaint: Recheck/Abnormal Lab/Rx Stated complaint: abd pain, vomiting blood, blood in stool Time Seen by Provider: 10/07/22 15:01 Mode of Arrival: Ambulatory Source of Information: Patient Limitations: No Limitations Description of Symptoms (Recalled from ER Triage Doc. by RN): pt to ed c/o esophgeal abrasion, bloody emesis and lower back pain. pt states she had a recent scope for similar complaints. History of Present Illness HPI narrative: Patient is a 41-year-old female with past medical history of esophageal erosions on recent endoscopy who presents emergency department for evaluation of hematemesis. Patient states that since her discharge she has had approximately 2-3 episodes of vomiting per day that is bloody. She has intermittent black stools. She has mid low chest pain consistent with her previous episodes of when she had bloody vomiting. Per chart review patient had a recent admission where she underwent upper endoscopy which showed lower esophageal erosions without active bleeding. Patient was undergoing medical management in the hospital when she signed out AGAINST MEDICAL ADVICE. Patient has no significant abdominal pain, no dysuria. No other acute complaints this time. Related Data Home Medications Medication Instructions Recorded Confirmed fluoxetine 10 mg capsule 10 mg PO DAILY MOOD 09/16/22 09/16/22 lisinopril 20 mg tablet 20 mg PO DAILY High Blood Pressure 09/16/22 09/16/22 naproxen 500 mg tablet 500 mg PO BID Pain 09/16/22 09/16/22 sofosbuvir 400 mg-velpatasvir 100 1 tab PO DAILY Hepatitis C 09/16/22 09/16/22 mg tablet Previous Rx's Medication Instructions Recorded omeprazole 20 mg capsule,delayed 20 mg PO DAILY 4 weeks #28 caps 10/07/22 release sucralfate 100 mg/mL oral 1 g (10 mL) PO BID 4 weeks #560 mL 10/07/22 suspension (Carafate) Allergies Allergy/AdvReac Type Severity Reaction Status Date / Time amoxicillin [AMOXICILLIN] Allergy Unknown Verified 09/16/22 13:02 codeine [CODEINE] Allergy Unknown NA-NAUSEA/V Verified 09/16/22 13:02 OMITING Penicillins Allergy Verified 09/16/22 13:02 [facility] Disclaimer: The information contained in this section may have been updated after the patient was seen, as this information can be updated by other users. Medical History Diarrhea Fever Hypertension Nausea & vomiting Surgical History History of section Family History Family history of cancer Social History Smoking Status: Never smoker alcohol intake: never substance use type: denies use current occupational status: employed
[2022-10-07 15:37] LABS: Basophils # 0.1 K/mm3 (0-0.2); Basophils % 0.6 % (0.1-2.0); Eosinophils # 0.1 K/mm3 (0.0-0.4); Eosinophils % 1.3 % (0.1-12.0); Hematocrit 43.6 % (37.0-47.0); Hemoglobin 14.5 g/dL (12.2-16.2); Lymphocytes # 2.2 K/mm3 (0.7-4.5); Lymphocytes % 23.1 % (10-50); Mean Corpuscular HGB Conc 33.2 g/dL (31.8-35.4); Mean Corpuscular Hemoglobin 29.2 pg (27.0-31.2); Mean Corpuscular Volume 87.9 fl (81-99); Monocytes # 0.4 K/mm3 (0.1-1.0); Monocytes % 4.6 % (1.7-9.3); Neutrophils # 6.5 K/mm3 (1.8-7.8); Neutrophils % 70.3 % (37.0-80.0); Platelet Count 295 K/mm3 (142-424); Red Blood Count 4.96 M/mm3 (4.20-5.40); Red Cell Distribution Width 12.8 % (11.5-17.5); White Blood Count 9.3 K/mm3 (4.8-10.8)
[2022-10-07 15:42] LABS: Chloride 105 mmol/L (98-107); Sodium 137 mmol/L (136-145)
[2022-10-07 15:44] LABS: Alanine Aminotransferase 23 U/L (12-78); Aspartate Amino Transferase 29 U/L (14-36)
[2022-10-07 15:45] LABS: Albumin Level 3.8 g/dl (3.5-5.0); Albumin/Globulin Ratio 1.2 (1.1-1.8); Alkaline Phosphatase 100 U/L (38-126); Bilirubin,Total 0.3 mg/dl (0.2-1.3); Calcium 9.1 mg/dl (8.4-10.2); Carbon Dioxide 23 mmol/L (22.0-30.0); Globulin 3.1 g/dL (1.3-3.2); Glucose 114 mg/dl (74-100); Total Protein,Serum 6.9 g/dl (6.3-8.2)
[2022-10-07 15:50] LABS: Blood Urea Nitrogen 14 mg/dl (7-17); Creatinine Clearance Estimated 106 mL/min (50-200); Estimated Glomerular Filt Rate 69 ml/min (>60); GFR (African American) 83 ML/MIN (>60)
[2022-10-07 15:55] LABS: HCG Qualitative, Serum Negative (Negative)
--- NOTE | 2022-10-07 15:58 | PC.NURSE ---
pt setting in bed nothing needed,call light at bs
[2022-10-07 16:06] LABS: Troponin I < 0.01 ng/ml (0.00-0.034)
--- NOTE | 2022-10-07 16:58 | PC.NURSE ---
pt ambulated from restroom to room
[2022-10-07 17:06] VITALS: BP 146/105; PULSE 96; RESP 18; TEMP 36.8; O2SAT 100
== END 2022-10-07 17:07 | disposition home or self-care (01) ==
PROVIDERS: Emergency Provider Emergency Medicine
DX: K92.2 Gastrointestinal hemorrhage, unspecified (principal); K22.11 Ulcer of esophagus with bleeding; M54.50 Low back pain, unspecified; I10 Essential (primary) hypertension
CPT/HCPCS: 71260; 80053; 84484; 84703; 85025; 86850; 96361; 96374; 99285; Q9967